=== PATIENT | male | born 2000 | race Caucasian/White ===

== ENCOUNTER 2022-04-22 12:55 | Emergency (ER) | payer OTHER ==
[~2022-04-22] VITALS: Ht 188 cm; Wt 96.4 kg
[2022-04-22] MEDS ORDERED: methocarbamoL 750 MG TAB PO ONE (17:40)
[2022-04-22] MEDS ORDERED: METH-1165 PO (17:49)
[2022-04-22 18:33] VITALS: BP 124/75
== END 2022-04-22 18:37 | disposition home or self-care (01) ==
LOC: M ED 12:55
DX: S16.1XXA Strain of muscle, fascia and tendon at neck level, initial encounter (principal); X58.XXXA Exposure to other specified factors, initial encounter; Y92.89 Other specified places as the place of occurrence of the external cause